=== PATIENT | female | born 1995 | race Caucasian/White ===

== ENCOUNTER → 2016-12-28 | Outpatient (CLI) | payer OTHER ==
[~2016-12-28] MED LIST: BCPILLS PO; TRAM-10 PO
--- NOTE | 2016-12-28 18:00 | DIAGNOSTIC IMAGING REPORT ---
EXAMINATION: PELVIC ULTRASOUND CLINICAL HISTORY: HIGH SERM TESTOSTERONE, MENORRHAGIA W IRREG. CYCLE COMPARISON STUDY: None FINDINGS: The uterus measured 7.4 cm. The endometrial stripe measured 7 mm. The right ovary measured 3 cm with normal vascular flow. The left ovary measured 4.0 x 3.0 cm with a 2 cm follicular cyst. Normal vascular flow. There is no ultrasonographic evidence of ovarian torsion. It should be noted that ovarian torsion can be present with normal Doppler ultrasonographic findings. There was no evidence of pathologic free pelvic fluid. IMPRESSION: 2 cm left ovarian cyst. Otherwise normal pelvic ultrasound Electronically signed by: Leon Marr M.D. 12/28/2016 5:59 PM Dictated Date/Time: 12/28/2016 5:58 PM
== END | disposition home or self-care (01) ==
LOC: C.ULTR 17:12
PROVIDERS: ATTEND Internal Medicine
DX: R79.89 Other specified abnormal findings of blood chemistry (principal); N92.1 Excessive and frequent menstruation with irregular cycle; N83.202 Unspecified ovarian cyst, left side

== ENCOUNTER 2017-07-03 20:39 | Emergency (ER) | payer OTHER ==
[~2017-07-03] VITALS: Ht 177.8 cm; Wt 87.2 kg
[2017-07-03 20:43] VITALS: Ht 177.8 cm; Wt 87.2 kg
[2017-07-03] MEDS ORDERED: SODIUM CHLORIDE 0.9% 1000ML 1,000 ML IV STA (21:14)
[2017-07-03] MEDS ORDERED: ONDANSETRON INJ 2 MG/ML 2 ML VIAL IV STA (21:14)
[2017-07-03] MEDS ORDERED: MoRPHine SULFATE 4 MG/ML 1 ML CARP\\VIAL IV PRN (21:15)
[2017-07-03] MEDS ORDERED: BCPILLS PO (21:18)
[2017-07-03 21:44] LABS: BASO % 1.2 %; BASO ABS # 0.07 K/uL (0-0.2); COMPLETE YES; EOS % 2.1 %; HEMATOCRIT 37.9 % (37-47); IG% 0.2 %; LYMPH % 29.8 %; LYMPH ABS # 1.68 K/uL (1.2-3.4); MEAN CELL VOLUME 90.5 fL (80-100); MEAN CORPUSCULAR HEMOGLOBIN 31.3 pg (25-34); MEAN CORPUSCULAR HGB CONC 34.6 g/dl (32-36); MEAN PLATELET VOLUME 9.5 fL (7.4-10.4); MONO % 7.8 %; NEUT % 58.9 %; PLATELET COUNT 273 K/uL (130-400); RED BLOOD COUNT 4.19 M/uL (4.2-5.4); WHITE BLOOD COUNT 5.63 K/uL (4.8-10.8)
[2017-07-03 22:06] LABS: ALT/SGPT 17 U/L (12-78); BLOOD UREA NITROGEN 10 mg/dl (7-18); BUN/CREATININE RATIO 13.4 (10-20); CALCIUM 9.2 mg/dl (8.5-10.1); CARBON DIOXIDE 28 mmol/L (21-32); CHLORIDE 107 mmol/L (98-107); CREATININE 0.76 mg/dl (0.60-1.20); GLUCOSE 78 mg/dl (70-99); POTASSIUM 3.7 mmol/L (3.5-5.1); SODIUM 139 mmol/L (136-145)
[2017-07-03 22:09] LABS: ALKALINE PHOSPHATASE 47 U/L (45-117); AST/SGOT 15 U/L (15-37)
[2017-07-03 22:17] LABS: URINE APPEARANCE CLEAR (CLEAR); URINE BILIRUBIN NEG (NEG); URINE COLOR YELLOW; URINE NITRITE NEG (NEG); UROBILINOGEN NEG (NEG)
[2017-07-03 22:19] LABS: MANUAL MICROSCOPIC REQUIRED? NO; REVIEW REQ? NO
[2017-07-03 22:40] LABS: PREG INTERNAL NEGATIVE QC NEG CLEAR BACKGROUND; PREG INTERNAL POSITIVE QC POS CONTROL LINE
[2017-07-04] MEDS ORDERED: TRAMADOL HCL 50 MG HOME PACK PO ONE (00:15)
[2017-07-04] MEDS ORDERED: TRAM-10 PO (00:17)
[2017-07-04 00:35] VITALS: BP 122/74; PULSE 63; TEMP 36.7; O2SAT 100
--- NOTE | 2017-07-04 06:34 | DIAGNOSTIC IMAGING REPORT ---
PELVIC COMPLETE NON OB CLINICAL HISTORY: ABDOMINAL PAIN/N/V/D PAIN. NAUSEA. COMPARISON STUDY: 12/28/2016 FINDINGS: The uterus measured 6.3 cm. The endometrial stripe measured 5 mm. The right ovary measured 3.3 cm with normal vascular flow. The left ovary measured poorly seen due to overlying bowel content.. There is no ultrasonographic evidence of ovarian torsion. It should be noted that ovarian torsion can be present with normal Doppler ultrasonographic findings. There was no evidence of pathologic free pelvic fluid. IMPRESSION: Study limited to transabdominal evaluation. Negative right ovary and uterus. The above report was generated using voice recognition software. It may contain grammatical, syntax or spelling errors. Electronically signed by: Leon Marr M.D. 07/04/2017 6:33 AM Dictated Date/Time: 07/04/2017 6:31 AM
--- NOTE | 2017-07-04 22:29 | EMERGENCY ROOM VISIT NOTE ---
ED Visit Note First contact with patient: 20:50 Chief Complaint: I've been having abdominal pain for the last 5 days. History of Present Illness: Ms. Moeller is a 21 year-old white female ambulates into the ED accompanied by her mother complaining of mid quadrant lower abdominal pain. Historically patient reports significant gastrointestinal disorders or abdominal surgeries. Patient reports a gradual onset of mid quadrant lower abdominal pain that started 5 days ago. Since that time her pain has been constant and has gradually increased in intensity. She places her discomfort 1-2 inches inferior to her umbilicus in the central portion of the abdomen. She describes her pain as a cramping sensation. She currently rates her discomfort 4/10. She reports there was no radiation of her discomfort but earlier today she noted some of the cramping sensation started moving into the left lower quadrant. She has been using ibuprofen without relief of her discomfort. She is not identified any aggravating or alleviating factors related to the pain. Associated with her pain she reports that she has had a decreased appetite and today she was nauseated but had no vomiting. Additionally she historically she reports that she is a virgin and she has not had any sexual activity. Patient denies fevers, chills, sweats, skin eruptions, skin color changes, upper respiratory tract symptoms, shortness of breath, chest pain, diarrhea, constipation, rectal bleeding, black/tarry stools, urinary symptoms, hematuria, vaginal bleeding, vaginal discharge, back/flank pain. Review of Systems: As noted above in history of present illness. All body systems were reviewed and found to be negative as noted above. Past Medical History: Vasovagal syncope, status post unspecified shoulder surgery and anterior cruciate ligament reconstructive surgeries. Current Medications: Patient denies. Allergies to Medications: Patient denies. Social History: Patient is a student; she feels safe in her home environment; she denies tobacco and alcohol use. Physical Examination: Vital Signs: Date Time Temp Pulse Resp B/P (MAP) Pulse Ox O2 Delivery O2 Flow Rate FiO2 07/04/17 00:35 36.7 63 16 122/74 100 07/04/17 00:31 63 16 122/74 100 Room Air 07/03/17 22:39 77 18 115/76 99 Room Air 07/03/17 20:43 36.7 77 18 126/85 99 Room Air GENERAL: 21-year-old female in mild distress due to pain, nontoxic-appearing, afebrile and hemodynamically stable. NEUROLOGICAL: Awake, alert and oriented to person, place and time. Answering questions appropriately and following commands. Normal gait. Good hand eye coordination. SKIN: Warm, dry and pink. No soft tissue eruptions or trauma noted. HEENT: Atraumatic and normocephalic. PERRLA. Sclera white and conjunctiva pink. Oral cavity moist and pink. Pharynx is nonerythematous or edematous. Speech normal. No lymphadenopathy. Trachea midline. No jugular venous distention. BACK: No tenderness over the bony spine. No CVA tenderness. THORAX: Lungs sounds are clear to auscultation and equal bilaterally with symmetrical chest wall. No wheezing, rales or rhonchi. No crepitus, tenderness , subcutaneous air or deformities noted. HEART: Regular rate and rhythm. No gallops, rubs or murmurs are appreciated. ABDOMEN: Flat and soft with mild tenderness just inferior to the umbilicus in the central portion of the abdomen. Positive bowel sounds in all quadrants. No guarding, rigidity or organomegaly. EXTREMITIES: Moves all extremities well on command and with purpose. All distal neurovascular statuses are intact and equal bilaterally. ED Course: Patient is assessed as noted above. Patient's medication list was reviewed. Laboratory Testing: Test 07/03/17 21:30 Range/Units White Blood Count 5.63 4.8-10.8 K/uL Red Blood Count 4.19 4.2-5.4 M/uL Hemoglobin 13.1 12.0-16.0 g/dL Hematocrit 37.9 37-47 % Mean Corpuscular Volume 90.5 80-100 fL Mean Corpuscular Hemoglobin 31.3 25-34 pg Mean Corpuscular Hemoglobin Concent 34.6 32-36 g/dl Platelet Count 273 130-400 K/uL Mean Platelet Volume 9.5 7.4-10.4 fL Neutrophils (%) (Auto) 58.9 % Lymphocytes (%) (Auto) 29.8 % Monocytes (%) (Auto) 7.8 % Eosinophils (%) (Auto) 2.1 % Basophils (%) (Auto) 1.2 % Neutrophils # (Auto) 3.31 1.4-6.5 K/uL Lymphocytes # (Auto) 1.68 1.2-3.4 K/uL Monocytes # (Auto) 0.44 0.11-0.59 K/uL Eosinophils # (Auto) 0.12 0-0.5 K/uL Basophils # (Auto) 0.07 0-0.2 K/uL RDW Standard Deviation 39.2 36.4-46.3 fL RDW Coefficient of Variation 11.9 11.5-14.5 % Immature Granulocyte % (Auto) 0.2 % Immature Granulocyte # (Auto) 0.01 0.00-0.02 K/uL Urine Color YELLOW Urine Appearance CLEAR CLEAR Urine pH 7.0 4.5-7.5 Urine Specific [place] 1.010 1.000-1.030 Urine Protein NEG NEG Urine Glucose (UA) NEG NEG Urine Ketones NEG NEG Urine Occult Blood NEG NEG Urine Nitrite NEG NEG Urine Bilirubin NEG NEG Urine Urobilinogen NEG NEG Urine Leukocyte Esterase NEG NEG Urine Test NEG NEG Sodium Level 139 136-145 mmol/L Potassium Level 3.7 3.5-5.1 mmol/L Chloride Level 107 98-107 mmol/L Carbon Dioxide Level 28 21-32 mmol/L Anion Gap 4.0 3-11 mmol/L Blood Urea Nitrogen 10 7-18 mg/dl Creatinine 0.76 0.60-1.20 mg/dl Est Creatinine Clear Calc Drug Dose 141.6 ml/min Estimated GFR () 130.9 Estimated GFR (Non- 112.9 BUN/Creatinine Ratio 13.4 10-20 Random Glucose 78 70-99 mg/dl Calcium Level 9.2 8.5-10.1 mg/dl Total Bilirubin 0.1 0.2-1 mg/dl Direct Bilirubin < 0.1 0-0.2 mg/dl Aspartate Amino Transf (AST/SGOT) 15 15-37 U/L Alanine Aminotransferase (ALT/SGPT) 17 12-78 U/L Alkaline Phosphatase 47 45-117 U/L Total Protein 7.2 6.4-8.2 gm/dl Albumin 3.7 3.4-5.0 gm/dl Lipase 130 73-393 U/L Pelvic Ultrasound: Was reviewed by myself and read by the radiologist. He reported this was a suboptimal study he cause of a limited transabdominal evaluation. She was hydrated with additional saline to improve for views but after 3 attempts it was unsuccessful. Radiologist does note that the uterus measures 6.3 cm, in the endometrial stripe measures 5 mm, the right ovary measures 3.3 cm with normal vascular flow, the left ovary was not able to be seen due to overlying bowel content, no ultrasonic evidence of ovarian torsion and no evidence of pathological free fluid. Patient was hydrated with normal saline, she received 4 mg of morphine IV for pain and 4 mg of Zofran IV for nausea. Patient was reassessed multiple times during her stay in the emergency department. Patient's case was reviewed with Dr. Buck; we agreed on diagnostic approach, treatment, disposition and plan. Patient and mother were educated about today's findings and instructed on her treatment plan; they verbalized understanding and agreement with this plan. Clinical Impression: Acute pelvic pain. Decision-Making: Initially my differential diagnosis I considered ovarian torsion, ovarian cyst rupture, ectopic , PID, urinary tract infection, ureter calculus, appendicitis and other causes. Disposition: Patient discharged home in stable condition accompanied by her mother; prior to departure she was reassessed and subjectively reported she was pain and symptom-free. Plan: Patient was placed on a sliding pain scale of ibuprofen, acetaminophen and Ultram. Patient was encouraged to stay well-hydrated. Patient was referred to Dr. Escalera gynecology for follow-up care and treatment. Patient is encouraged return ED for worsening/uncontrolled pain, fevers, vaginal bleeding or any new/concerning symptoms.
== END 2017-07-04 00:36 | disposition home or self-care (01) ==
LOC: C.EDB 20:40 → C.EDC 07-04 00:36
DX: R10.2 Pelvic and perineal pain (principal); R11.0 Nausea

== ENCOUNTER 2017-12-11 20:26 | Emergency (ER) | payer OTHER ==
[~2017-12-11] VITALS: Ht 177.8 cm; Wt 92.8 kg
[~2017-12-11 20:26] MED LIST changes: -BCPILLS PO
[2017-12-11 21:01] VITALS: TEMP 36.9; Ht 177.8 cm; Wt 92.8 kg
[2017-12-11] MEDS ORDERED: BCPILLS PO (21:18)
[2017-12-11] MEDS ORDERED: ONDANSETRON INJ 2 MG/ML 2 ML VIAL IV STA (21:49)
[2017-12-11 22:18] VITALS: O2SAT 98
[2017-12-11 22:19] LABS: BASO % 0.3 %; BASO ABS # 0.02 K/uL (0-0.2); EOS % 2.2 %; EOS ABS # 0.13 K/uL (0-0.5); HEMATOCRIT 43.5 % (37-47); HEMOGLOBIN 15.1 g/dL (12.0-16.0); IG# 0.01 K/uL (0.00-0.02); LYMPH % 28.7 %; LYMPH ABS # 1.68 K/uL (1.2-3.4); MEAN CELL VOLUME 88.2 fL (80-100); MEAN CORPUSCULAR HEMOGLOBIN 30.6 pg (25-34); MEAN CORPUSCULAR HGB CONC 34.7 g/dl (32-36); MEAN PLATELET VOLUME 9.2 fL (7.4-10.4); MONO % 6.5 %; MONO ABS # 0.38 K/uL (0.11-0.59); NEUT % 62.1 %; NEUT ABS # 3.64 K/uL (1.4-6.5); PLATELET COUNT 333 K/uL (130-400); RED CELL DISTRIBUTION WIDTH CV 12.1 % (11.5-14.5); RED CELL DISTRIBUTION WIDTH SD 38.7 fL (36.4-46.3); WHITE BLOOD COUNT 5.86 K/uL (4.8-10.8)
[2017-12-11 22:35] LABS: CALCIUM 9.4 mg/dl (8.5-10.1); CREATININE 0.91 mg/dl (0.60-1.20); POTASSIUM 3.6 mmol/L (3.5-5.1)
[2017-12-11] MEDS ORDERED: PROB1TAB16 PO (22:37)
[2017-12-11] MEDS ORDERED: CHOL1000 PO (22:37)
[2017-12-11] MEDS ORDERED: TRAM-10 PO (22:37)
[2017-12-11] MEDS ORDERED: MULT-506 PO (22:37)
[2017-12-11] MEDS ORDERED: THIA100T11 PO (22:37)
[2017-12-11] MEDS ORDERED: DICY10CA55 PO (22:37)
[2017-12-11 22:38] LABS: TOTAL PROTEIN 8.4 gm/dl (6.4-8.2)
[2017-12-11] MEDS ORDERED: METOCLOPRAMIDE HCL INJ 5 MG/ML 2 ML VIAL IV STA (22:38)
[2017-12-11] MEDS ORDERED: SODIUM CHLORIDE 0.9% 1000ML 2,000 ML IV STA (22:38)
[2017-12-11] MEDS ORDERED: FAMOTIDINE 20MG/5ML IV PUSH IV STA (22:38)
[2017-12-11] MEDS ORDERED: DiphenhydrAMINE HCL 50 MG/ML VIAL IV STA (22:38)
--- NOTE | 2017-12-11 22:49 | EMERGENCY ROOM VISIT NOTE ---
History Report prepared by Aleks: Aixa Monzon Under the Supervision of: Dr. Jackson Velarde M.D. First contact with patient: 22:26 Chief Complaint: NAUSEA Stated Complaint: SICK, NAUSEA, ESQUIVEL Nursing Triage Summary: pt reporting nausea x3 days with decreased appetite. Pt states "I hate throwing up, so I try really hard not to, but I have come very close". Mother concerned for dehydration. pt having scope done for endometriosis over spring. Pt had endoscopy recently which was reported as negative. History of Present Illness The patient is a 22 year old female who presents to the Emergency Room with complaints of persistent nausea for three days. She reports feeling like she needs to vomit that began today, though she has not vomited. She reports associated pelvic pain for the last three days. She notes that she has been experiencing pelvic pain for eight days prior to the start of her menstrual cycles and the pain is constant throughout that time period. She notes she started to experience pelvic pain with her menstrual cycles in June 2017. She is expected to be evaluated for endometriosis this week. She reports the nausea is new and not common with her menstrual cycles. She notes the nausea is worsened when she sits up. She reports a headache that began at 1700 today. She notes the volume of the menstrual bleeding is normal and the cramping is typical as usual. She denies any coughs, shortness of breath, or chest pain. She denies any fevers, chills, diarrhea, congestion, diarrhea, or urinary symptoms. She notes the Zofran has helped, though she is still nauseous. Source of History: patient Onset: three days Position: other (global) Quality: other (nausea) Timing: other (persistent) Modifying Factors (Worsening): other (sitting up) Associated Symptoms: + headache, No fevers, No chills, No cough, No chest pain, No SOB, No vomiting, No diarrhea, No urinary symptoms Note: She denies any congestion. Review of Systems See HPI for pertinent positives and negatives. A total of ten systems were reviewed and were otherwise negative. Past Medical & Surgical Surgical Problems: (1) Hx of anterior cruciate ligament tear reconstruction Family History Diabetes mellitus Social History Smoking Status: Never Smoker Alcohol Use: none Marital Status: single Housing Status: lives with family Occupation Status: student Current/Historical Medications Scheduled Control Pills ( Control Pills), 1 TAB PO DAILY Cholecalciferol (Vitamin D3), 1 TAB PO DAILY Famotidine (Pepcid), 20 MG PO BID Multivitamin (Multivitamin), 1 TAB PO DAILY Ondasetron Odt (Zofran Odt), 4 MG SL Q6H Probiotic Product (Probiotic), 1 TAB PO DAILY Thiamine Hcl (Vitamin B-1), 1 TAB PO DAILY Scheduled PRN Dicyclomine Hcl (Bentyl), 10 MG PO TID PRN for Abdominal Pain Tramadol (Ultram), 50-100 MG PO Q6H PRN for Pain Allergies Coded Allergies: No Known Allergies (Unverified , 07/03/17) Physical Exam Vital Signs Date Time Temp Pulse Resp B/P (MAP) Pulse Ox O2 Delivery O2 Flow Rate FiO2 12/12/17 01:28 76 14 103/65 98 12/12/17 00:01 111/67 12/11/17 23:20 82 19 100 12/11/17 23:01 108/57 12/11/17 22:22 68 12/11/17 22:18 98 Room Air 12/11/17 22:17 64 18 110/70 99 Room Air 12/11/17 21:01 36.9 87 18 116/83 99 Room Air Physical Exam GENERAL: Awake, alert, fatigued-appearing, in no distress HENT: Normocephalic, atraumatic. Oropharynx dry mucus membranes. EYES: Normal conjunctiva. Sclera non-icteric. NECK: Supple. No nuchal rigidity. FROM. No JVD. RESPIRATORY: Clear to auscultation. CARDIAC: Regular rate, normal rhythm. Extremities warm and well perfused. Pulses equal. ABDOMEN: Soft, non-distended. Mild lower abdominal discomfort, though no discreet tenderness. No rebound or guarding. No masses. RECTAL: Deferred. MUSCULOSKELETAL: Chest examination reveals no tenderness. The back is symmetrical on inspection without obvious abnormality. There is no CVA tenderness to palpation. No joint edema. LOWER EXTREMITIES: Calves are equal size bilaterally and non-tender. No edema. No discoloration. NEURO: Normal sensorium. No sensory or motor deficits noted. SKIN: No rash or jaundice noted. Medical Decision & Procedures Laboratory Results 12/11/17 22:00 Red Blood Count 4.93, Mean Corpuscular Volume 88.2, Mean Corpuscular Hemoglobin 30.6, Mean Corpuscular Hemoglobin Concent 34.7, Mean Platelet Volume 9.2, Neutrophils (%) (Auto) 62.1, Lymphocytes (%) (Auto) 28.7, Monocytes (%) (Auto) 6.5, Eosinophils (%) (Auto) 2.2, Basophils (%) (Auto) 0.3, Neutrophils # (Auto) 3.64, Lymphocytes # (Auto) 1.68, Monocytes # (Auto) 0.38, Eosinophils # (Auto) 0.13, Basophils # (Auto) 0.02 12/11/17 22:00 Test 12/11/17 22:00 12/11/17 23:25 White Blood Count 5.86 K/uL (4.8-10.8) Red Blood Count 4.93 M/uL (4.2-5.4) Hemoglobin 15.1 g/dL (12.0-16.0) Hematocrit 43.5 % (37-47) Mean Corpuscular Volume 88.2 fL (80-100) Mean Corpuscular Hemoglobin 30.6 pg (25-34) Mean Corpuscular Hemoglobin Concent 34.7 g/dl (32-36) Platelet Count 333 K/uL (130-400) Mean Platelet Volume 9.2 fL (7.4-10.4) Neutrophils (%) (Auto) 62.1 % Lymphocytes (%) (Auto) 28.7 % Monocytes (%) (Auto) 6.5 % Eosinophils (%) (Auto) 2.2 % Basophils (%) (Auto) 0.3 % Neutrophils # (Auto) 3.64 K/uL (1.4-6.5) Lymphocytes # (Auto) 1.68 K/uL (1.2-3.4) Monocytes # (Auto) 0.38 K/uL (0.11-0.59) Eosinophils # (Auto) 0.13 K/uL (0-0.5) Basophils # (Auto) 0.02 K/uL (0-0.2) RDW Standard Deviation 38.7 fL (36.4-46.3) RDW Coefficient of Variation 12.1 % (11.5-14.5) Immature Granulocyte % (Auto) 0.2 % Immature Granulocyte # (Auto) 0.01 K/uL (0.00-0.02) Urine Color YELLOW Urine Appearance CLEAR (CLEAR) Urine pH 8.5 (4.5-7.5) Urine Specific [place] 1.010 (1.000-1.030) Urine Protein NEG (NEG) Urine Glucose (UA) NEG (NEG) Urine Ketones NEG (NEG) Urine Occult Blood 2+ (NEG) Urine Nitrite NEG (NEG) Urine Bilirubin NEG (NEG) Urine Urobilinogen NEG (NEG) Urine Leukocyte Esterase NEG (NEG) Urine WBC (Auto) 1-5 /hpf (0-5) Urine RBC (Auto) 5-10 /hpf (0-4) Urine Hyaline Casts (Auto) 1-5 /lpf (0-5) Urine Epithelial Cells (Auto) >30 /lpf (0-5) Urine Bacteria (Auto) 1+ (NEG) Urine Yeast (Auto) (NONE PRSENT) Urine Test NEG (NEG) Anion Gap 9.0 mmol/L (3-11) Est Creatinine Clear Calc Drug Dose 120.8 ml/min Estimated GFR () 104.5 Estimated GFR (Non- 90.2 BUN/Creatinine Ratio 7.6 (10-20) Calcium Level 9.4 mg/dl (8.5-10.1) Total Bilirubin 0.3 mg/dl (0.2-1) Aspartate Amino Transf (AST/SGOT) 19 U/L (15-37) Alanine Aminotransferase (ALT/SGPT) 25 U/L (12-78) Alkaline Phosphatase 50 U/L (45-117) Total Protein 8.4 gm/dl (6.4-8.2) Albumin 4.0 gm/dl (3.4-5.0) Globulin 4.4 gm/dl (2.5-4.0) Albumin/Globulin Ratio 0.9 (0.9-2) Influenza Type A Antigen Neg for Influ A (NEG) Influenza Type B Antigen Neg for Influ B (NEG) Laboratory results reviewed by me Medications Administered Medications (Trade) Dose Ordered Sig/Meena Route Start Time Stop Time Status Last Admin Dose Admin Ondansetron HCl (Zofran Inj) 4 mg NOW STAT IV 12/11/17 21:49 12/11/17 21:50 DC 12/11/17 22:12 4 MG Sodium Chloride 2,000 ml @ 999 mls/hr Q2H1M STAT IV 12/11/17 22:38 2/15/18 00:38 DC 12/11/17 23:08 999 MLS/HR Famotidine (Pepcid 20mg Iv Push) 20 mg NOW STAT IV 12/11/17 22:38 12/11/17 22:44 DC 12/11/17 23:08 20 MG Metoclopramide HCl (Reglan Inj) 10 mg NOW STAT IV 12/11/17 22:38 12/11/17 22:44 DC 12/11/17 23:08 10 MG Diphenhydramine HCl (Benadryl Inj) 25 mg NOW STAT IV 12/11/17 22:38 12/11/17 22:44 DC 12/11/17 23:08 25 MG Ondansetron HCl (ZOFRAN ODT 4MG Home Pack) 1 homepack UD ONCE PO 12/12/17 01:30 12/12/17 01:31 DC 12/12/17 01:28 1 HOMEPACK ED Course 2237: The patient was evaluated in room C12B. A complete history and physical exam was performed. 0008: I reassessed the patient at this time. She is feeling better and resting comfortably. I discussed the results and treatment plan with the patient. I answered all pertaining questions that she had. She expressed understanding and verbalized agreement. The patient will be discharged home. Medical Decision I reviewed the patient's past medical history, medications, and the nursing notes as described above. Differential diagnosis: Etiologies such as gastroenteritis, food borne illness, infections, appendicitis , diverticulitis, inflammatory bowel disease, obstruction, GI bleed, biliary pathology, as well as others were entertained. The patient is a 22 y/o woman with a pmhx of dysmenorrhea being followed by [facility] for possible endometriosis presents to the emergency department with n/v per HPI. On arrival the patient is fatigued appearing but in NAD, AFVSS. Mild lower abdominal discomfort, which is baseline for the patient given her current menstrual cycle. Denies any abnormal bleeding for her menstrual cycle at this time. Labs unremarkable including wbc wnl. Chemistry unremarkable. Influenza negative. Patient feeling improved after IVF, pepcid, zofran, reglan. Sx possibly related to viral illness/gastritis. Given reassuring w/u, exam and vital signs, no indication for further w/u at this time. Findings and plan for follow-up reviewed with patient. Patient agreeable and d/c'd per discharge instructions. Medication Reconcilliation Current Medication List: was personally reviewed by me Blood Pressure Screening Patient's blood pressure: Normal blood pressure Impression Primary Impression: Nausea Scribe Attestation The scribe's documentation has been prepared under my direction and personally reviewed by me in its entirety. I confirm that the note above accurately reflects all work, treatment, procedures, and medical decision making performed by me. Departure Information Dispostion Home / Self-Care Prescriptions Ondasetron Odt (ZOFRAN ODT) 4 Mg Tab 4 MG SL Q6H for Nausea, #10 TAB Prov: Jackson Velarde M.D. 12/12/17 Famotidine (PEPCID) 20 Mg Tab 20 MG PO BID for 10 Days, #20 TAB Prov: Jackson Velarde M.D. 12/12/17 Referrals Rosalba Banks M.D. (PCP) Forms HOME CARE DOCUMENTATION FORM, IMPORTANT VISIT INFORMATION, School Instructions Patient Instructions ED Nausea Vomiting, [facility] Additional Instructions Please follow up with your employment law attorney as scheduled for re-evaluation. The cause of your symptoms in unclear but may be related to a mild gastritis. Otherwise, your exam and lab results did not show signs of an emergent condition at this time. Pepcid for acid reduction. Zofran as needed for nausea. Drink plenty of fluids to ensure hydration. Return to the emergency department for worsening symptoms as described in the accompanying instructions.
[2017-12-12 00:10] LABS: INFLUENZA B ANTIGEN Neg for Influ B (NEG)
[2017-12-12] MEDS ORDERED: FAMO20TA9 PO (01:04)
[2017-12-12] MEDS ORDERED: ONDA4TAB10 SL (01:04)
[2017-12-12 01:28] VITALS: BP 103/65; PULSE 76; O2SAT 98
[2017-12-12] MEDS ORDERED: ONDANSETRON HOME PACK 4MG OD TAB PO ONE (01:30)
[2017-12-13] MEDS ORDERED: MISCCAP80 PO (15:24)
[2017-12-13] MEDS ORDERED: FAMO20TA11 PO (15:24)
[2017-12-13] MEDS ORDERED: B-CO1CAP17 PO (15:24)
[2017-12-13] MEDS ORDERED: VITACAP26 PO (15:24)
[2017-12-13] MEDS ORDERED: ONDA4TAB65 PO (15:24)
== END 2017-12-12 01:28 | disposition home or self-care (01) ==
LOC: C.EDB 20:27 → C.EDC 12-12 01:28
DX: R11.0 Nausea (principal); Z83.3 Family history of diabetes mellitus; Z79.3 Long term (current) use of hormonal contraceptives; Z79.899 Other long term (current) drug therapy

== ENCOUNTER 2017-12-27 07:30 | Day surgery (SDC) | payer OTHER ==
[2017-12-13 15:25] VITALS: BMI 29.0
--- NOTE | 2017-12-13 15:46 | PAT Medication Instructions ---
Service Date Dec 13, 2017. Current Home Medication List Control Pills ( Control Pills), 1 TAB PO QAM Cholecalciferol (Vitamin D3), 2 TAB PO QAM Dicyclomine Hcl (Bentyl), 10 MG PO TID PRN for Abdominal Pain Famotidine (Pepcid), 20 MG PO BID Multivitamin (Multivitamin), 2 TAB PO QAM Ondansetron Hcl (Zofran), 4 MG PO SL Probiotic Product (Probiotic), 2 TAB PO QAM Tramadol (Ultram), 50-100 MG PO Q6H PRN for Pain Vitamin B Cmplx/Vitc/Folic Ac (Nephrocaps), 1 CAP PO QAM Vitamins C & E (Vitamin C), 1 TAB PO QAM Medication Instructions For Your Scheduled Surgery - Check with surgeon for instructions: Control Pills ( Control Pills), 1 TAB PO QAM - Hold the following medications the morning of surgery: Cholecalciferol (Vitamin D3), 2 TAB PO QAM Dicyclomine Hcl (Bentyl), 10 MG PO TID PRN for Abdominal Pain Famotidine (Pepcid), 20 MG PO BID Multivitamin (Multivitamin), 2 TAB PO QAM Probiotic Product (Probiotic), 2 TAB PO QAM Vitamin B Cmplx/Vitc/Folic Ac (Nephrocaps), 1 CAP PO QAM Vitamins C (Vitamin C), 1 TAB PO QAM - Take the following medications the morning of surgery with a sip of water: Tramadol (Ultram), 50-100 MG PO Q6H PRN for Pain (okay to take up to 4 hours prior to surgery if needed) Ondansetron Hcl (Zofran), 4 MG PO SL (if needed) - Take the following medications as scheduled the night before surgery: Tramadol (Ultram), 50-100 MG PO Q6H PRN for Pain (if needed) Ondansetron Hcl (Zofran), 4 MG PO SL (if needed) Famotidine (Pepcid), 20 MG PO BID Dicyclomine Hcl (Bentyl), 10 MG PO TID PRN for Abdominal Pain (if needed) If you have any questions please call us at [phone] or [phone] or [phone]
[~2017-12-27] VITALS: Ht 177.8 cm; Wt 92.1 kg
[~2017-12-27 07:30] MED LIST changes: +B-CO1CAP17 PO; +BCPILLS PO; +CHOL1000 PO; +DEXAMETHASONE SOD INJ 4 MG/ML VIAL ONE; +DICY10CA55 PO; +FAMO20TA11 PO; +FENTANYL CITRATE INJ 50 MCG/1 ML 2 ML VIAL ONE; +HYDROmorphone INJ 2 MG/ML SYR/VIAL ONE; +LACTATED RINGER'S 1000ML 1,000 ML IV SCH; +LARYING-O-JET KIT (LTA) ONE; +LIDOCAINE HCL 2% 2 ML VIAL (20MG/ML) ONE; +METOCLOPRAMIDE HCL INJ 5 MG/ML 2 ML VIAL ONE; +MIDAZOLAM HCL 1 MG/ML 2ML VIAL ONE; +MISCCAP80 PO; +MULT-506 PO; +ONDA4TAB65 PO; +ONDANSETRON INJ 2 MG/ML 2 ML VIAL ONE; +PROPOFOL IV EMULSION 10 MG/ML 20 ML VIAL IV ONE; +SODIUM CHLORIDE 0.9% INJ 10 ML VIAL ONE; +VITACAP26 PO
[2017-12-27 08:26] VITALS: BP 111/72; PULSE 71; TEMP 37; O2SAT 99; Ht 177.8 cm; Wt 92.1 kg
--- NOTE | 2017-12-27 08:40 | History & Physical Bridge Note ---
H&P Re-Evaluation Bridge Note: I have examined the patient, reviewed the History & Physical and in the interval since the performance of the History & Physical I have noted the following changes of clinical significance: No changes noted
[2017-12-27] MEDS ORDERED: ACETAMINOPHEN 1000 MG/100 ML IV IV ONE (08:42)
[2017-12-27] MEDS ORDERED: METHYLENE BLUE 0.5% 10 ML VIAL ONE (08:44)
[2017-12-27] MEDS ORDERED: BUPIVACAINE 0.5 % 5 MG/1 ML MPF 30ML VIAL ONE (08:45)
[2017-12-27] MEDS ORDERED: ATROPINE SULFATE 0.1 MG/ML 5ML SYR IV PRN (09:15)
[2017-12-27] MEDS ORDERED: ONDANSETRON INJ 2 MG/ML 2 ML VIAL IV PRN ×2 (09:15→10:30)
[2017-12-27] MEDS ORDERED: FENTANYL CITRATE INJ 50 MCG/1 ML 2 ML VIAL IV PRN (09:15)
[2017-12-27] MEDS ORDERED: PROMETHAZINE HCL INJ 12.5 MG in SODIUM CHLORIDE 0.9% 50ML 50 ML IV PRN (09:15)
[2017-12-27] MEDS ORDERED: KETOROLAC TROMETHAMINE 30 MG/ML VIAL IV. PRN ×2 (09:15→10:30)
[2017-12-27] MEDS ORDERED: RANITIDINE HCL 25 MG/ML INJ ONE (09:29)
[2017-12-27] MEDS ORDERED: DiphenhydrAMINE HCL 50 MG/ML VIAL ONE (09:29)
--- NOTE | 2017-12-27 10:18 | [facility] Post Operative Brief Note ---
Immediate Operative Summary Operative Date Dec 27, 2017. Pre-Operative Diagnosis Pelvic Pain Post-Operative Diagnosis pelvic pain Procedure(s) Performed Robot Assisted Laparoscopic Dissection of Endometriosis Surgeon Dr. Amisha Escalera [employer] Machine Operator Surgeon(s) None Estimated Blood Loss 1mL Findings Consistent with Post-Op Diagnosis Specimens A. Cul de Sac Peritoneum Drains None Anesthesia Type General Complication(s) none Disposition Accompanied Pt To Recover: no Disposition: Recovery Room / PACU
[2017-12-27] MEDS ORDERED: SODIUM CHLORIDE 0.9% 1000ML 1,000 ML IV SCH (10:19)
[2017-12-27] MEDS ORDERED: SILVER NITR/POTASSIUM NITRATE APPLICATOR ONE (10:24)
--- NOTE | 2017-12-27 10:28 | Discharge Instructions ---
Discharge Instructions Date of Service Dec 27, 2017. Admission Reason for Admission: Pelvic Pain Discharge Discharge Diagnosis / Problem: pelvic pain Discharge Goals Goal(s): Routine recovery after surgery Activity Recommendations Activity Limitations: per Instructions/Follow-up section . Instructions / Follow-Up Instructions / Follow-Up ACTIVITY RECOMMENDATIONS: * Rest the first 2-3 days. You should be back to your normal activity levels by day 3. * No heavy lifting for 2 weeks. * No intercourse, tampons or douching for 1-2 weeks. * You may shower the next day. * Do not drive anytime that you are taking narcotic pain medicines. RETURN TO SCHOOL/WORK: * May return to school or work after 2-3 days. DIET: Nausea may occur in the immediate post-operative period. If so, take clear liquids such as tea, bouillon, apple juice until all nausea has subsided, then resume usual diet. MEDICATIONS: Resume previous medications unless instructed otherwise by your surgeon. Ibuprofen 200mg 2-3 tablets every 4-6 hours as needed -- OR -- Aleve 2 tablets every 8-12 hours as needed for post-operative discomfort Medications are over the counter. Tylenol may be used if above medications are contraindicated or not preferred. Medication should be taken with food or milk. Do not take on an empty stomach. SPECIAL CARE INSTRUCTIONS: * Check temperature twice daily for one week. report any elevation over 101 degrees. * You may experience some vagina spotting and/or bleeding. This is normal for 1 -2 weeks and should not be heavier than a normal period. If it is unusual in amount, call your physician. * Post-operative discomfort may consist of a sore throat, a "bloated" feeling and pain in the shoulders. these are normal symptoms, which usually only last for 2-3 days. * Remove band-aids tomorrow and shower. There is no need to replace band-aids unless there is drainage or discomfort. FOLLOW UP VISIT: Call your doctor's office for a post-operative 2 week visit if not already scheduled. Current Hospital Diet Patient's current hospital diet: Discharge Diet Recommended Diet: Regular Diet Procedures Procedures Performed: Robot Assisted Laparoscopic Dissection of Endometriosis Pending Studies Studies pending at discharge: no Medical Emergencies . Who to Call and When: Medical Emergencies: If at any time you feel your situation is an emergency, please call 911 immediately. . Non-Emergent Contact Non-Emergency issues call your: Hospital Administrator . . "Provider Documentation" section prepared by Amor Escalera. .
[2017-12-27] MEDS ORDERED: OXYC-57 PO (10:29)
[2017-12-27] MEDS ORDERED: MTR600X PO (10:29)
[2017-12-27] MEDS ORDERED: OXYCODONE/ACETAMINOPHEN 5-325 TAB PO PRN ×2 (10:30)
[2017-12-27] MEDS ORDERED: IBUPROFEN 600 MG TAB PO PRN (10:30)
[2017-12-27] MEDS ORDERED: PROMETHAZINE HCL INJ 25 MG in SODIUM CHLORIDE 0.9% 50ML 50 ML IV PRN (10:30)
[2017-12-27] MEDS ORDERED: FENTANYL CITRATE INJ 50 MCG/1 ML 2 ML VIAL ONE (10:38)
[2017-12-27 11:30] VITALS: BP 132/71; PULSE 78; TEMP 36.5; O2SAT 98
--- NOTE | 2017-12-27 11:37 | Anesthesiology Progress Note ---
Anesthesia Post Op Note Date & Time Dec 27, 2017 at 11:37 Vital Signs Pain Intensity: 2 Vital Signs Past 12 Hours Date Time Temp Pulse Resp B/P (MAP) Pulse Ox O2 Delivery O2 Flow Rate FiO2 12/27/17 11:20 36.2 66 17 129/79 96 Room Air 12/27/17 11:10 64 14 125/73 98 Room Air 12/27/17 11:00 71 14 123/77 99 Oxymask 10 12/27/17 10:50 85 18 135/88 100 Oxymask 10 12/27/17 10:40 36.6 86 12 145/91 100 Oxymask 10 12/27/17 08:26 37.0 71 18 111/72 (85) 99 Room Air Notes Mental Status: alert / awake / arousable, participated in evaluation Pt Amnestic to Procedure: Yes Nausea / Vomiting: adequately controlled Pain: adequately controlled Airway Patency, RR, SpO2: stable & adequate BP & HR: stable & adequate Hydration State: stable & adequate Anesthetic Complications: no major complications apparent
[2017-12-27] MEDS ORDERED: PROMETHAZINE HCL INJ 25 MG/ML 1 ML VIAL ONE (11:57)
[2017-12-27 12:00] VITALS: BP 127/72; PULSE 87; O2SAT 96
--- NOTE | 2017-12-27 12:27 | OPERATIVE REPORT ---
DATE OF OPERATION: 12/27/2017 PREOPERATIVE DIAGNOSIS: Pelvic pain. POSTOPERATIVE DIAGNOSIS: Pelvic pain, possible endometriosis. PROCEDURE: Laparoscopic robotic assistance of peritoneum suspicious for endometriosis. SURGEON: Dr. Esaclera. SUPERVISOR REINFORCED STEEL PLACING: None. ESTIMATED BLOOD LOSS: 1 mL. Findings: Consistent with postop diagnosis. SPECIMENS: Cul-de-sac, peritoneum x2. DRAINS: None. ANESTHETIC: General. COMPLICATIONS: None. DISPOSITION: Recovery. DESCRIPTION OF PROCEDURE: Tiana was given a general anesthetic, prepped and draped in dorsal lithotomy position in [facility]. Bladder drained with a Pennington catheter and cervical acorn device attached to Allis clamp attached to the cervix. Gloves changed and a subumbilical vertical incision made with scalpel. Using open dissection technique, we did a cut down through the subcutaneous fat through the fascia, splitting the rectus muscles and entering the peritoneal cavity without difficulty. Blunt-tipped Katharine trocar placed, balloon inflated to stabilize the port, CO2 gas used to insufflate the abdomen. FINDINGS: Upper abdomen normal, no sign of visceral organ injury. Deep Trendelenburg position obtained, 2 ports placed, 1 in the left, 1 in the right side, robotic ports under direct visualization. Using a probe, I was able to visualize in the cul-de-sac. There were some cystic lesions, these were suspicious for possible endometriosis; however, were not pathognomonic. There were no powder burn lesions. We specifically inspected the pelvic sidewalls, the bladder flap region, the back of the uterus, the ovaries and the appendix and these were all negative for endometriosis. Because of her symptoms consistent with endometriosis, we resected the 2 areas by using robotics. The robot was docked arm #1 was monopolar kristian, arm #2 was bipolar [place]. We resected using minimal electrosurgery, first lesion on the right and then her lesion on the left. Both lesions were medial to the uterosacral ligaments. Both specimens were then placed on top of the uterus for safekeeping. At this stage, hemostasis was excellent. At the completion of the procedure, the specimens were grabbed with the bipolar [place] and the [place] was removed through the robotic port, both specimens were removed. At this stage, robot undocked. After instruments were removed, gas allowed to escape. Incisions injected with 0.5% Marcaine. Fascia carefully closed with 0 Vicryl UR-6 needle. Subcutaneous fat irrigated and closed with Vicryl, 4-0 subcuticular Monocryl closures and Dermabond applied. The Pennington catheter removed. Urine was clear. The instruments removed from the cervix and vagina. There was some minimal oozing from the posterior fourchette. A small amount of silver nitrate applied and hemostasis was excellent. Sponge, instrument counts correct at the end of the procedure. I attest to the content of the Intraoperative Record and any orders documented therein. Any exception s are noted below.
[2017-12-27 12:30] VITALS: BP 126/74; PULSE 90; TEMP 36.5; O2SAT 99
[2017-12-27] MEDS ORDERED: NEOSTIGMINE METHYLSULFATE 5 MG/5 ML SYR ONE (13:22)
[2017-12-27] MEDS ORDERED: GLYCOPYRROLATE INJ 0.2 MG/ML VIAL ONE (13:22)
== END 2017-12-27 13:10 | disposition home or self-care (01) ==
LOC: C.ACU 07:30
PROVIDERS: ATTEND Obstetrics & Gynecology
DX: N80.3 Endometriosis of pelvic peritoneum (principal); N92.6 Irregular menstruation, unspecified; Z83.3 Family history of diabetes mellitus; Z88.8 Allergy status to other drugs, medicaments and biological substances; Z79.899 Other long term (current) drug therapy; Z98.890 Other specified postprocedural states
CPT/HCPCS: 58662; S2900